=== PATIENT | male | born 1940 | race Caucasian/White ===

== ENCOUNTER 2023-06-25 16:53 | Inpatient (IN) | payer MEDICARE, OTHER, SELFPAY ==
[2023-06-25 14:57] VITALS: BP 136/66
[2023-06-25 15:00] VITALS: BMI 24.3
--- NOTE | 2023-06-25 15:13 | ED TECH ---
A STROKE ALERT was called#[id number]# per @ 15:12 pm. [facility] Notified.
--- NOTE | 2023-06-25 15:31 | CON.NEURO ---
Neuro Assessment/Plan
Assessment
IMPRESSIONS/RECOMMENDATIONS:
Abrupt onset syncope while eating suggesting possible orthostasis followed by slurred speech and left-sided facial weakness
in a patient with a prior history of subdural hematoma in 1993 following traumatic head injury and a repeated event in approximately 2013
Most likely the patient's syncope was not neurological in etiology and there is no clear evidence at this time that the patient is experiencing an acute onset of stroke. The patient's ongoing slurred speech may represent an outcome from relative
hypoxia, briefly experienced
Plan
No clear indication for additional brain neuroimaging unless the patient worsens
No clear indication patient will require additional EEG or other neurological testing
Would continue the patient on aspirin although the use of anticoagulant would be acceptable from use of HAS-BLED scale
Consider additional cardiac evaluation
Consider additional metabolic evaluation especially in light of the patient's relative hypothermia
Will continue to follow patient as needed. Thank you.
Consultation
Order
Date of Consultation: 06/25/23
Requesting Provider: ED Provider
Reason for Consult: Stroke alert
Subjective/Objective
Subjective Data
Date of Service: June 25, 2023
Left-Handed
Patient presented to this [facility] from usual location of living due to that of syncope. Patient had been in his usual state of health until while eating, he suddenly lost consciousness. There is no warning before the event,
no control loss of bowel or bladder and no tongue biting. The patient returned to consciousness and awareness of his lunch tray being disturbed. No prior episodes which were similar. No known modifying factors. Of note is that the patient began
use of an antibiotic for an urinary tract infection 3 days ago. Otherwise, the patient has been well.
Objective Data
Vital Signs
Temp Pulse Resp Pulse Ox
35.3 C L 68 21 96
06/25/23 15:00 06/25/23 15:00 06/25/23 15:00 04/30/24 15:08
Patient Allergies
Wlubezu-CZY-CwL Reductase Inhibitor [Cezwxqk-Wem-Tqb Reductase Inhibitor] Allergy (Verified 07/05/20 12:00)
MUSCLE CRAMPS
CVA Assessment
Onset of Stroke Symptoms
Onset of symptoms known: Yes
Date of onset of symptoms: 06/25/23
Time of onset of symptoms: 13:30
Time pt last seen normal is known: Yes
Date last time pt seen normal: 06/25/23
Time last time pt seen normal: 13:30
NIH Stroke Score
Level of Consciousness: 0 - Alert
LOC Questions: 0-Answers both correctly
LOC Commands: 0-Performs both correctly
Best Horizontal Gaze: 0-Normal
Visual Cook: 0=Normal, no visual loss
Facial Palsy: 0=Normal, symmetrical
Motor - Right Arm: 0=No drift 10 seconds
Motor - Left Arm: 0=No drift 10 seconds
Motor - Right Le-No drift 5 seconds
Motor - Left Le-No drift 5 seconds
Limb Ataxia: 0-Absent
Sensation: 0-Normal
Best Language: 0-No aphasia
Dysarthria: 1-Mild slurring
Extinction and Inattention: 0-No abnormality
Total Score:: 1
Tenecteplase Contraindications
Inclusion and Exclusion criteria reviewed: Yes
IAT Contraindications: NIHSS < 6
Review of Systems
-
History Source: Patient
All other systems: Reviewed and negative
EENT: Negative Swallowing Difficulty
Respiratory: Negative Trouble Breathing
Cardiac: Negative Chest Pain
Abdomen/GI: Negative Incontinence of Stool
Genitourinary: Negative Incontinence
Musculoskeletal: Negative Back Pain or Neck Pain
Neuro: Negative Dizzy, Headache or Weakness
Physical Exam
-
General: No Apparent Distress and Appears Stated Age
Eyes: OU Absent Papilledema, Round OU, [place] Conjunctivae and No Ptosis
HEENT: Anicteric and Moist Mucous Membranes
Neck: Full Range of Motion
Respiratory: No Dyspnea
Cardiac: No JVD
GI: Non-distended
Skin: Unremarkable
Extremities: No Clubbing, No Cyanosis and No Edema
Psych: Intact Judgement/Insight
Extended Neurological Exam
Mood & Affect: Mood Unremarkable and Affect Unremarkable
Attention Span & Concentration: Awake, Alert, Interactive and No Difficulty with 2 Step Request
Memory: Unremarkable
Tremor: Hand Tremor Absent and Head Tremor Absent
Speech: Quality Unremarkable and Quantity Unremarkable
Cranial Nerve II: Left Eye: Pupillary Reactivity Unremarkable, Pupillary Size Unremarkable and Visual Cook Intact
Cranial Nerve II: Right Eye: Pupillary Reactivity Unremarkable, Pupillary Size Unremarkable and Visual Cook Intact
Cranial Nerves III, IV, : Extraocular Movement: Extraocular Movement Full in all Directions
Cranial Nerve VII: Facial Symmetry: Normal Facial Symmetry
Cranial Nerve VIII: Hearing: Unremarkable Hearing to Normal Conversational Volume
Cranial Nerves IX, X: Palate Movement: Palate Elevation Symmetric
Cranial Nerve XI: Shoulder Shrug: Unremarkable
Cranial Nerve XII: Tongue Protusion: Midline
Muscle Strength, Overall: Full Throughout
Muscle Bulk & Tone: Bulk Unremarkable and Tone Unremarkable
Pronator Drift: No Drift in Upper Extremities
Deep Tendon Reflexes: Unremarkable Throughout
Touch Sensation: Unremarkable
Coordination: Qtmayk-hvld-gyrvfb Testing Unremarkable
Babinski Sign: Absent Bilaterally
Gait & Station: Unable to Assess
Data Reviewed
-
CT Head: Image Reviewed
Labs: Pending and Report Reviewed
Reviewed with: Physician, Nurse, Patient and Family (At bedside)
Old Records: Summarized
Medications
-
Home Medications
�Medication �Instructions �Recorded
amiodarone 200 mg tablet (Pacerone) 200 mg PO Daily #90 tabs 02/22/20
aspirin 81 mg chewable tablet 81 mg PO DAILY 02/22/20
carvedilol 6.25 mg tablet 6.25 mg PO BID #180 tabs 02/22/20
ezetimibe 10 mg tablet 10 mg PO DAILY #90 tabs 02/22/20
furosemide 40 mg tablet 40 mg PO BID AT 0800,1600 #180 tabs 02/22/20
pravastatin 10 mg tablet 10 mg PO QPM #90 tabs 02/22/20
sacubitril 24 mg-valsartan 26 mg 1 tab PO BID #180 tabs 02/22/20
tablet (Entresto)
glipizide 5 mg tablet 5 mg PO DAILY 07/05/20
insulin glargine 100 unit/mL (3 50 units SC HS 07/05/20
mL) subcutaneous pen (Lantus
Solostar U-100 Insulin)
levothyroxine 25 mcg tablet 25 mcg PO DAILY 07/05/20
Past History
Past History
ED Past Medical History: Arrthythmia (Atrial fibrillation), CAD, CHF, CVA, HTN, Hypercholesterolemia, NIDDM, [place] and Other (Intracranial hemorrhage 1993 with subdural hematoma, repeated in 2013 and with evacuation)
ED Past Surgical History: Cardiac (Cardiac catheterization 1992), Urological (Kidney stone removal) and Other (Craniotomy 1993 and 2013)
Social History
Tobacco: Former smoker
Alcohol: None
Drug: None
Personal:
Living: with family
Employment: Retired
Family History
Family History: Other (reviewed and non-contributory) and Adopted
[2023-06-25 15:33] LABS: % Basophils 0.3 % (0-2); % Eosinophils 2.7 % (0-6); % Immature Granulocytes 1.2 % (0-0.5); % Lymphocytes 16.9 % (20.5-51.1); % Monocytes 6.6 % (1.7-9.3); % Neutrophils 72.3 % (42.2-75.2); Absolute Eosinophils 0.3 10^3/uL (0-0.7); Absolute Immature Granulocytes 0.1 10^3/uL (0-0.05); Absolute Monocytes 0.8 10^3/uL (0.1-0.6); Absolute Neutrophils 8.6 10^3/uL (1.4-6.5); Hematocrit 42.1 % (39.0-52.0); Hemoglobin 14.2 g/dL (13.0-18.0); Mean Corp Hgb Conc. 33.7 g/dL (33.0-37.0); Mean Corpuscular Hgb 28.2 pg (27.0-31.0); Mean Corpuscular Volume 83.7 fL (80.0-94.0); Mean Platelet Volume 9.2 fL (7.4-10.4); Nucleated Red Blood Cells % 0 % (-); Platelet Count 262 10^3/uL (130-400); Red Blood Cell Count 5.03 10^6/uL (4.70-6.10); Red Cell Dist. Width 14.6 % (11.5-14.5); White Blood Cell Count 11.8 10^3/uL (4.8-10.8)
[2023-06-25 15:48] LABS: ALT (SGPT) 22 U/L (0-50); AST (SGOT) 25 U/L (17-59); Albumin 3.4 g/dl (3.5-5.0); Alkaline Phosphatase 94 U/L (38-126); Blood Urea Nitrogen 30 mg/dl (9-20); Calcium 8.8 mg/dl (8.4-10.2); Carbon Dioxide 24 mmol/L (22-30); Chloride 104 mmol/L (98-107); Estimated Creatinine Clearance 55 ml/min; Glucose 173 mg/dl (70-99); Magnesium 2.4 mg/dl (1.6-2.3); Potassium 3.9 mmol/L (3.5-5.1); Sodium 137 mmol/L (135-145); Total Bilirubin 0.6 mg/dl (0.2-1.3); Total Protein 6.3 g/dl (6.3-8.2); eGFR > 60.00
--- NOTE | 2023-06-25 15:50 | ED.CVA ---
History of Present Illness
General
Chief Complaint: CVA/TIA Symptoms
Source: patient, [facility] crew and [facility]
Exam Limitations: none
Time Seen by Provider: 06/25/23 15:05
Nursing documentation reviewed up to this point in time: agreed with
Onset of Stroke Symptoms
Onset of symptoms known: Yes
Date of onset of symptoms: 06/25/23
Time of onset of symptoms: 13:30
Travel History
Have you had any contact with someone who has COVID-19?: No
Do you have any symptoms of coronavirus? Fever > 100 degrees, chills, cough, shortness of breath, sore throat, loss of taste or smell, muscle aches, or headache?: No
History of Present Illness
History of Present Illness:
Patient presents to ED from [facility] after witnessed syncopal episode in his room. Per patient, he had lunch brought to his room. He was sitting on his lounge chair waiting to eat his lunch, when he 'passed out'. When he woke up, still
sitting on his lounge chair, his lunch has been thrown off the table onto the floor. Patient denies confusion afterwards. Patient denies preceding chest palpitations, dizziness, or any other complaints. Patient is currently being treated for UTI,
on day 3 of Keflex. Per transfer note, patient went when he woke up, was noted to be exhibiting mild slurred speech with left facial droop, which now have all resolved. At the time of evaluation ED, patient is without any complaints. Patient at
baseline uses walker, secondary to leg fracture. In addition, patient has residual right-sided weakness from previous cerebral hematoma, requiring craniectomy.
Past History
Past History
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
ED Past Surgical History: Cardiac (Cardiac catheterization 1992), Urological (Kidney stone removal) and Other (Craniotomy 1993 and 2013)
Social History
Tobacco: Former smoker
Alcohol: None
Drug: None
Personal:
Living: with family
Employment: Retired
Family History
Family History: Other (reviewed and non-contributory) and Adopted
Review of Systems
Review of Systems
Allergies reviewed?: Yes
All Other Systems: ROS reviewed and negative except as documented in HPI and ROS
Constitutional: Reports no symptoms; Denies fever
EENT: Reports no symptoms
Respiratory: Reports no symptoms
Cardiac: Reports syncope; Denies palpitations
ABD/GI: Reports no symptoms
: Reports no symptoms
Musculoskeletal: Reports no symptoms
Skin: Reports no symptoms
Neurological: Reports no symptoms; Denies dizzy or headache
Phy Exam
Physical Exam
Physical Exam:
Physical Exam
General: no apparent distress, not acutely ill. afebrile
Head: nc/at. eomi
Neck: supple. no meningeal signs.
Heart: s1/s2 regular rate and rhythm, no murmur. equal radial pulses.
Lungs: no acute respiratory distress. clear bilaterally
Abdomen: normal bowel sounds. not tender.
Neuro: alert and oriented. no focal neurological deficits. normal speech.
Skin: no rash
Psychiatric: well kept. interactive and cooperative
Extremities: no edema. no calf tenderness.
Course
Orders/Labs/Results
Orders:
Orders
06/25/23 Dinner
2000 calorie (17 carb) Diabetic
At Your Request: Limited Participation
06/25/23 15:15
CT Head W/o Cont STROKE ALERT Stat
Reason For Exam: stroke/tia
06/25/23 15:17
Electrocardiogram (*1) Urgent
Reason for Study: TIA/Stroke
EKG- Treatment ONCE
06/25/23 15:19
Complete Blood Count/With Diff Urgent
Comprehensive Metabolic Panel Urgent
Magnesium Urgent
Troponin I Urgent
Blood Culture Q30M
DENA Source: Blood/Venous
Specimen Description:
06/25/23 15:49
Urinalysis Reflex To Culture Urgent
Date Specimen was Collected: 06/25/23
Time Specimen was Collected: 15:48
Urine Microscopic Reflex Cult Urgent
Urine Culture Urgent
DENA Source: U
Specimen Description:
Date Specimen was Collected: 06/25/23
Time Specimen was Collected: 15:48
06/25/23 15:52
Lactic Acid Q4H
Comment: CANCEL 2nd LACTIC ACID IF 1st LACTIC ACID IS LESS THAN 2
Blood Culture Q30M
DENA Source: Blood/Venous
Specimen Description:
06/25/23 16:40
Admit/Transfer Patient As Directed
Co-Sign Provider:
Level of Care: Inpatient admission
Assign to:: Telemetry
Physician / Group: [place]
Diagnosis: Syncope, UTI
Reason for Telemetry: Syncope
Date to Stop Telemetry: 06/27/23
Time to Stop Telemetry: 11:00
Reason for Hospitalization: IV abx
Expected length of stay greater than two midnights?: Yes
ELOS- Estimated Length of Stay in days: 3
I certify the patient meets the requirements for IP care: Yes
06/25/23 16:45
Code Status As Directed
Resuscitation Status: Do not resuscitate
Reached after discussion with pt or family/Healthcare POA: Yes
DNR Bracelet Application ONCE
06/25/23 17:47
0.9% Sodium Chloride 1000 ml [Nss] 1,000 ml IV 60 mls/hr
Acetaminophen [Tylenol] 650 mg PO Q4HPRN PRN
Dextrose 50%-Water [Dextrose 50% Syringe] 12.5 grams IV [id number] PRN
Glucagon [GlucaGen] 1 mg IM PRN PRN
06/25/23 17:47
Activity As Directed
Activity Level: Out of Bed-Early Mobility
With Assistance
Bedside Glucose Monitoring As Directed
Frequency: AC&HS
Additional Instructions:: Change to q6h if pt on TPN, tube feeding or not eating
I&O [Intake/ Output] As Directed
Frequency: q12h
NIH Stroke Scale As Directed
Directions: Per protocol
Comment: every shift and with any change in condition or mental status
Neurological Checks As Directed
Frequency: q4h
Additional Instructions:: q4h x 24h upon admission to the floor, then qshift & with any change in condition
and mental status
Orthostatic Vital Signs As Directed
Orthostatic VS Frequency: BID
Pneumatic Compression Sleeves As Directed
Type: Knee high
Vital Signs As Directed
Frequency: Per unit guidelines
Weight As Directed
Frequency: Daily
Ot Eval And Treat Routine
Pt Eval And Treat Routine
Activity Level: Out of Bed-Early Mobility
Speech Therapy Eval & Treat Routine
DX Deep Vein Thrombosis Video Routine
06/25/23 18:00
CefTRIAXone [Rocephin] 1,000 mg IV Q24H
Pravastatin Sodium [Pravachol] 10 mg PO QPM
06/25/23 20:00
Carvedilol [Coreg] 6.25 mg PO BID
Sacubitril 24/Valsartan 26 [Entresto 24 mg/26 mg] 1 tab PO BID
06/25/23 20:07
Lactic Acid Q4H
Comment: CANCEL 2nd LACTIC ACID IF 1st LACTIC ACID IS LESS THAN 2
06/25/23 22:00
insulin glargine [Lantus Solostar U-100 Insulin] 68 units SC HS
06/26/23 06:00
Basic Metabolic Panel IN AM
Complete Blood Count/No Diff IN AM
Glycohemoglobin (HgbA1c) IN AM
Magnesium IN AM
TSH Reflex To Free T4 IN AM
Levothyroxine [Synthroid] 50 mcg PO MoTuWeThFrSa@0600
06/26/23 07:30
Insulin Aspart Corrective Mod [Novolog Flexpen-Moderate Resistance] See Protocol SC AC
06/26/23 08:00
Aspirin Chewable [Low Strength Aspirin] 81 mg PO DAILY
Empagliflozin [Jardiance] 10 mg PO DAILY
Ezetimibe [Zetia] 10 mg PO DAILY
06/27/23 11:00
DC Protocol for Telemetry ONCE
06/30/23 06:00
Levothyroxine [Synthroid] 100 mcg PO SHEPHERD@0600
Abnormal Lab Results
06/25/23 06/25/23 06/25/23
15:19 15:49 15:52
WBC 11.8 H 10^3/uL
(4.8-10.8)
RDW 14.6 H %
(11.5-14.5)
Abs Immat Gran (auto) 0.1 H 10^3/uL
(0-0.05)
Absolute Neuts (auto) 8.6 H 10^3/uL
(1.4-6.5)
Absolute Monos (auto) 0.8 H 10^3/uL
(0.1-0.6)
Immature Gran % 1.2 H %
(0-0.5)
Lymphocytes % 16.9 L %
(20.5-51.1)
BUN 30 H mg/dl
(9-20)
Glucose 173 H mg/dl
(70-99)
Lactic Acid 2.3 H mmol/L
(0.7-2.0)
Magnesium 2.4 H mg/dl
(1.6-2.3)
Albumin 3.4 L g/dl
(3.5-5.0)
Ur Occult Blood Reflex 3+ A
(Negative)
Leukocyte Esterase Rfl 2+ A
(Negative)
Urine RBC 3-6 A /HPF
(0-2)
Urine WBC (Reflex) 80-90 A /HPF
(0-5)
Urine Bacteria (Reflex) Few A
(Negative)
Urine Yeast Many A
(Negative)
Urine Glucose 3+ A
(Negative)
06/25/23 15:19
06/25/23 15:19
Vital Signs
Initial and Last Documented VS:
Initial Vital Signs
BP
136/66
06/25/23 14:57
Last Documented Vital Signs
Temp Pulse Resp BP Pulse Ox
97.6 F 75 18 143/92 98
06/25/23 20:18 06/25/23 21:09 06/25/23 20:18 06/25/23 21:09 06/25/23 20:18
MDM/Problems Addressed
MDM/Problems Addressed:
CT head: NAD.
Pt evaluated in ED by (neurology) - does not feel that this is cva event, but symptoms likely metabolic in etiology or cardiac.
Awaiting urine culture result from [place].
Discussed with patient's family at bedside. Patient current speech pattern abnormal -more slurred than usual.
Blood culture pending.
Patient will be admitted for further evaluation and treatment.
*EKG
Interpreted by ED Provider?: Yes
EKG Intrepretation Date: 06/25/23
Heart Rate: 63
Rate: normal
Rhythm: sinus
[place]: normal axis
Interval: normal interval
QRS Pattern: right bundle branch block
Ischemia: T-wave inversion
*Critical Care Note
Total Time (30-74mins, 75-104mins- exclusive of procedures): Not Applicable
ED Attending Note
-
Portions of this chart may have been created with voice recognition software.� Occasional wrong word or��sound alike� substitutions may have occurred due to the inherent limitations of voice recognition software.
Discharge Plan
Departure
Patient Disposition: Admit
Date of Disposition: 06/25/23
Time of Disposition: 16:10
Admit to: Telemetry
Presentation/result/management discussed w/ accepting MD/DO: Hospitalist
Discharge Problem:
Slurred speech, Acute UTI
Interventions
Interventions:
*Risk Screen - Suicide Last Done: 06/25/23 15:01
*General Assessment Last Done: 06/25/23 15:01
*Neglect/Abuse Screening Last Done: 06/25/23 15:01
ED- Fall Risk Assessment Last Done: 06/25/23 15:08
*ED COVID-19 Vaccine History Last Done: 06/25/23 15:01
*Nursing Disposition Last Done: 06/25/23 17:50
ED- Pulmonary Assessment Last Done: 06/25/23 15:08
ED- Neurological Assessment Last Done: 06/25/23 15:08
ED- Cardiac Assessment Last Done: 06/25/23 17:24
ED Swallowing Screen Last Done: 06/25/23 17:24
Discharge Date and Time
Discharge Date/Time: 06/25/23 17:50
[2023-06-25 15:56] LABS: Troponin I < 0.012 ng/ml
[2023-06-25 16:00] VITALS: BP 144/77
[2023-06-25 16:02] LABS: Urine Albumin Trace (Neg - Trace); Urine Bilirubin Negative (Negative); Urine Character Slightly Cloudy (Clear); Urine Color Yellow; Urine Glucose 3+ (Negative); Urine Ketone Negative (Negative); Urine Leukocyte 2+ (Negative); Urine Nitrite Negative (Negative); Urine Occult Blood 3+ (Negative); Urine Urobilinogen Negative (Neg - 1+)
[2023-06-25 16:15] LABS: Lactic Acid 2.3 mmol/L (0.7-2.0)
--- NOTE | 2023-06-25 16:15 | W.PN.UPDATE ---
Update Note
Progress Note Update
This serves as an addendum to the H&P dictated by Mahsa Mac on 06/24.
I saw and examined the patient.
The PLATFORM INSPECTOR or PA's note was reviewed and I agree with the note.
Comment:
Patient 83 years old with history of hypertension, hyperlipidemia, CAD, CHF, CVA, presented to the hospital with syncope. Patient has been diagnosed with a urinary tract infection recently on antibiotics in the last couple days. Today he had an
episode of syncope associated with possible worsening slurred speech and left facial weakness and right-sided weakness. It was difficult to tell if the symptoms are worsening since he does have residual slurred speech, teeth extractions and
dentures, and facial weakness and right-sided weakness from prior strokes. Denies prodrome symptoms such as lightheadedness or warmth or other, and no bowel bladder incontinence, no tonic-clonic activity, no tongue biting, no chest pain or
shortness of breath. Patient was recently diagnosed with a UTI and taking antibiotics but symptoms have not worsened. Concern for stroke and CT scan of the head shows no acute intracranial abnormality but shows significant chronic findings in the
left hemisphere and neurology consulted. He was referred to hospitalist for further evaluation.
Physical exam:
General: Well Developed, Well Nourished and No Apparent Distress
HEENT: Normocephalic, Atraumatic and Moist Mucous Membranes
Respiratory: Clear to Auscultation; Negative Wheezes, Rales or Rhonchi
Cardiac: Regular Rhythm and S1/S2
GI: Soft, Nontender and Nondistended
Musculoskeletal: No Clubbing, No Cyanosis and No Edema
Neuro: Awake, Alert and Oriented. 4 out of 5 right upper and lower extremity, mild left facial weakness, mild dysarthria/slurred speech. Cranial nerves are intact. Did not attempt gait.
Psych: Calm
A/P:
Syncope, etiology possible recrudescence of prior stroke/UTI/rule out cardiac arrhythmia--> cardiac monitoring, continue aspirin and statins, IV Rocephin, requested old records, follow-up old and new cultures, neurology consult, further neurologic
workup per neurology. Discussed CODE STATUS with patient and 2 sons at bedside and he was ambivalent initially but later on said he does not want to be resuscitated or on life support and sons confirmed DNR status.
[2023-06-25 16:36] LABS: Urine Squamous Cell 0-2 /LPF (Few); Urine White Cell 80-90 /HPF (0-5)
[2023-06-25 16:37] LABS: Urine Bacteria Few (Negative); Urine Yeast Many (Negative)
--- NOTE | 2023-06-25 16:48 | HPS.HSE ---
Family Physician
-
Family Physician: Unique Brown
Chief Complaint
-
Syncope
History of Present Illness
Patient is an 83 y/o male past medical history of ICH, CAD, CHF, A-Fib who presents following a syncopal episode earlier today. Patient reports he was sitting in his room eating lunch when he just blacked out. He denies any preceding symptoms
including chest pain or palpitations. Patient admits to difficulty with speech at baseline but states since the episode his speech is more slurred than usual. Upon arrival to the ED he was noted to be hypothermic, and reports he has been on
antibiotics for a urinary tract infection for the past several days. He denies fevers, sweats or chills.
Medical History
Past Medical History
Past Medical History: Reports Other
Additional Past Medical History:
Intracranial Hemorrhage
Coronary Artery Disease
Chronic HFrEF
Paroxysmal Atrial Fibrillation
Essential Hypertension
Hyperlipidemia
Diabetes Mellitus, Type II
Hypothyroidism
Past Surgical History: Reports Other
Additional Past Surgical History:
Craniotomy
Kidney Stone Removal
Social History
Tobacco: Former Smoker
Living: Assisted Living
Family History
Family History: Not pertinent
Allergies / Home Medications
Allergies reflects when Allergies were last updated in [employer].
Home Medications with original date entered in [employer]
Allergy/Medication List:
Allergies
Allergy/AdvReac Type Severity Reaction Status Date / Time
Qnnnnxb-YNO-EnD Reductase Allergy MUSCLE Verified 07/05/20 12:00
Inhibitor CRAMPS
[Bdfilki-Qnv-Cse Reductase
Inhibitor]
Home Medications
aspirin 81 mg chewable tablet 81 mg PO DAILY 02/22/20
carvedilol 6.25 mg tablet 6.25 mg PO BID #180 tabs 02/22/20
ezetimibe 10 mg tablet 10 mg PO DAILY #90 tabs 02/22/20
pravastatin 10 mg tablet 10 mg PO QPM #90 tabs 02/22/20
glipizide 5 mg tablet 5 mg PO BID@0800,1700 07/05/20
insulin glargine 100 unit/mL (3 mL) subcutaneous pen (Lantus Solostar U-100 Insulin) 68 units SC HS 07/05/20
acetaminophen 325 mg tablet 650 mg PO Q8H PRN mild pain 06/25/23
ascorbate calcium (vitamin C) 500 mg tablet 1,000 mg PO DAILY PRN cold symptoms 06/25/23
calcium carbonate 400 mg PO DAILY PRN gerd 06/25/23
cephalexin 500 mg capsule 500 mg PO BID 06/25/23
dextromethorphan-guaifenesin 10 mg-100 mg/5 mL oral syrup 10 ml PO Q4H PRN cough/congestion 06/25/23
diclofenac sodium 1 % topical gel 2 g topical DAILY 06/25/23
diclofenac sodium 1 % topical gel 4 g topical BID PRN right knee pain 06/25/23
empagliflozin 10 mg tablet (Jardiance) 10 mg PO DAILY 06/25/23
furosemide 40 mg tablet 40 mg PO DAILY 06/25/23
levothyroxine 50 mcg tablet 50 mcg PO MOTUWETHFRSA 06/25/23
levothyroxine 50 mcg tablet 100 mcg PO SHEPHERD 06/25/23
peg 400-propylene glycol 0.4 %-0.3 % eye drops (Lubricant Eye (PG-PEG 400)) 1 drp BOTH EYES DAILY PRN dry eyes 06/25/23
sacubitril 24 mg-valsartan 26 mg tablet (Entresto) 1 tab PO BID 06/25/23
Review of Systems
-
A 12 point ROS was completed and negative except as noted: Yes
Constitutional: Denies Fever or Chills
Respiratory: Denies Cough or Trouble Breathing
Cardiac: Denies Chest Pain or Palpitations
Abdomen/GI: Denies Abdominal Pain, Nausea or Vomiting
Physical Exam
Vital Signs
Vital Signs
Temp Pulse Resp BP Pulse Ox
95.5 F L 63 22 136/66 96
06/25/23 15:00 06/25/23 15:30 06/25/23 15:00 06/25/23 14:57 06/25/23 15:08
Physical Exam
General: Comfortable and Conversant
HEENT: Anicteric and Moist mucous membranes
Respiratory: Clear and Non Labored Respirations
Cardiac: S1/S2 and Regular Rhythm
GI: Soft and Non Tender
Rectal: Deferred by Provider
Musculoskeletal: No Clubbing, No Cyanosis and No Edema
Skin: Warm and Dry
Neuro: Awake, Alert, Oriented, No Motor Deficits and Other (Chronic right foot drop)
Psych: Calm
Laboratory Results
-
06/25/23 15:19
06/25/23 15:19
Laboratory Results
Lactic Acid 2.3 mmol/L (0.7-2.0) H 06/25/23 15:52
Total Bilirubin 0.6 mg/dl (0.2-1.3) 06/25/23 15:19
AST 25 U/L (17-59) 06/25/23 15:19
ALT 22 U/L (0-50) 06/25/23 15:19
Alkaline Phosphatase 94 U/L (38-126) 06/25/23 15:19
Troponin I < 0.012 ng/ml 06/25/23 15:19
Data Reviewed
-
CT Scan: Report Reviewed by me
Lab Data: Labs Reviewed by me
Impression/Plan
-
Syncope
-Monitor on Telemetry
-Check orthostatic vital signs
Urinary Tract Infection
-Continue Rocephin
-Await urine and blood cultures
Slurred Speech, possible recrudescence of prior stroke
-Appreciate neurology consult
-Monitor neurochecks
Hx Intracranial Hemorrhage with Residual Right Foot Drop
-Consult PT/OT
Coronary Artery Disease s/p cardiac stent
-Continue aspirin
Chronic HFrEF
-Hold Lasix overnight
-Continue Entresto and Jardiance
-Monitor Is&Os and Daily Weights
Paroxysmal Atrial Fibrillation
-Patient is not on anticoagulation due to due history of intracranial hemorrhage
Essential Hypertension
-Continue Coreg
Hyperlipidemia
-Continue Zetia and Pravastatin
Diabetes Mellitus, Type II
-Hold Glipizide
-Continue Jardiance
-Continue Lantus
-Monitor sugar and continue converge insulin
Hypothyroidism
-Continue levothyroxine
DVT Proph: SCDs
Code Status: DNR
[2023-06-25 17:00] VITALS: BP 164/77
[2023-06-25 17:18] VITALS: BP 156/141
--- NOTE | 2023-06-25 17:50 | PTCARENOTE ---
06/24- Patient transferred and oriented to unit without issue. AAOX3; L-facial droop observed; Slow but clear speech currently observed. Telemetry #19- NSR at this time.
[2023-06-25 18:13] LABS: Glucose - Point of Care 208 mg/dl (70-99)
[2023-06-25 18:24] VITALS: BMI 24.3
[2023-06-25] MEDS: NSS 1000 IV (18:28)
[2023-06-25] MEDS: STERILE WATER FOR INJECTION 10 ML IV (18:31)
[2023-06-25] MEDS: ROCEPHIN 1000 MG IV (18:31)
[2023-06-25] MEDS: PRAVACHOL 10 MG PO (18:33)
[2023-06-25 20:18] VITALS: BP 143/92
[2023-06-25 20:25] LABS: Lactic Acid 1.2 mmol/L (0.7-2.0)
[2023-06-25] MEDS: COREG 6.25 MG PO (21:09)
[2023-06-25] MEDS: ENTRESTO 24 MG/26 MG 1 TAB PO (21:09)
[2023-06-25] MEDS: LANTUS 0.680000000000000049 UNITS SC (21:10)
[2023-06-25 21:15] LABS: Glucose - Point of Care 226 mg/dl (70-99)
[2023-06-25] MEDS: COMPAZINE 5 MG IV (22:28)
[2023-06-25 23:39] VITALS: BP 148/79
[2023-06-26] VITALS (8 sets, daily range): BP systolic 130–163; BP diastolic 64–81; PULSE 74–81; O2SAT 97; BMI 23.1
[2023-06-26] MEDS: SYNTHROID 50 MCG PO (05:24)
[2023-06-26] MEDS: COMPAZINE 5 MG IV (05:52)
[2023-06-26 07:16] LABS: Glucose - Point of Care 174 mg/dl (70-99)
[2023-06-26 08:33] LABS: Hematocrit 45.3 % (39.0-52.0); Mean Corp Hgb Conc. 33.1 g/dL (33.0-37.0); Mean Corpuscular Volume 84.5 fL (80.0-94.0); Mean Platelet Volume 9.3 fL (7.4-10.4); Platelet Count 249 10^3/uL (130-400); Red Blood Cell Count 5.36 10^6/uL (4.70-6.10); Red Cell Dist. Width 14.4 % (11.5-14.5); White Blood Cell Count 12.5 10^3/uL (4.8-10.8)
[2023-06-26 09:15] LABS: Blood Urea Nitrogen 27 mg/dl (9-20); Calcium 9.2 mg/dl (8.4-10.2); Carbon Dioxide 22 mmol/L (22-30); Chloride 109 mmol/L (98-107); Estimated Creatinine Clearance 79 ml/min; Glucose 151 mg/dl (70-99); Magnesium 2.6 mg/dl (1.6-2.3); Potassium 3.8 mmol/L (3.5-5.1); Sodium 142 mmol/L (135-145); eGFR > 60.00
[2023-06-26 09:45] LABS: TSH Reflex To Free T4 2.91 uIU/ml (0.47-4.68)
[2023-06-26] MEDS: NOVOLOG FLEXPEN-MODERATE RESISTANCE 1 UNITS SC (10:12)
[2023-06-26] MEDS: JARDIANCE 10 MG PO (10:13)
[2023-06-26] MEDS: ENTRESTO 24 MG/26 MG 1 TAB PO ×2 (10:13→22:05)
[2023-06-26] MEDS: LOW STRENGTH ASPIRIN 81 MG PO (10:13)
[2023-06-26] MEDS: ZETIA 10 MG PO (10:13)
[2023-06-26] MEDS: COREG 6.25 MG PO ×2 (10:13→22:04)
[2023-06-26 11:05] LABS: Glycohemoglobin (HgbA1c) 8.9 % (4.0-5.6)
--- NOTE | 2023-06-26 11:12 | W.PN.HOSP.TC ---
Addendum entered and electronically signed by Rajesh Quintero MD 06/26/23 14:05:
Patient's son, Yung was updated over the phone at [phone] and complete details. He was appreciative of updates.
Original Note:
Today's Communication/Plan
-
AXR
Orthostatics
Monitor on tele
Assessment / Plan
Assessment / Plan
General: Well Developed, Well Nourished and No Apparent Distress
HEENT: Normocephalic, Atraumatic and Moist Mucous Membranes
Respiratory: Clear to Auscultation; Negative Wheezes, Rales or Rhonchi
Cardiac: Regular Rhythm and S1/S2
GI: Soft, Nontender and Nondistended
Musculoskeletal: No Clubbing, No Cyanosis and No Edema
Neuro: Awake, Alert and Oriented. 4 out of 5 right upper and lower extremity, Cranial nerves are intact.
Psych: Calm
Syncope likely 2/2 dehydration
-Monitor on Telemetry-no arrhythmia noted. PVCs noted.
-Check orthostatic vital signs. No chest pain. Troponin negative.
-Appreciate neurology recs.
Nausea/vomiting
-check Flat plate xray
Candiduria doubt symptomatic.
-EKG to assess Qtc
-Not neutropenic or urinary tract manipulation
-Await blood cultures
Slurred Speech, possible recrudescence of prior stroke
-Appreciate neurology consult
-Monitor neurochecks
Hx Intracranial Hemorrhage with Residual Right Foot Drop
-Consult PT/OT
Coronary Artery Disease s/p cardiac stent
-Continue aspirin
Chronic HFrEF
-Hold Lasix
-Continue Entresto and Jardiance
-Monitor Is&Os and Daily Weights
Paroxysmal Atrial Fibrillation
-Patient is not on anticoagulation due to due history of intracranial hemorrhage
Essential Hypertension
-Continue Coreg
Hyperlipidemia
-Continue Zetia and Pravastatin
Diabetes Mellitus, Type II
-Hold Glipizide
-Continue Jardiance
-Continue Lantus. POC 174
-Monitor sugar and continue converge insulin
Hypothyroidism
-Continue levothyroxine
DVT Proph: SCDs
Code Status: DNR
PT/OT-Home health.
Anticipated Discharge: > 48 hours
Subjective/Interval History
-
Date of Service: June 26, 2023
Had 3 Episode of nausea and vomiting
Received Zofran
Had some Jell-O and states starting to feel mildly better
Objective Data
-
Labs:
Laboratory Results
06/26/23
07:50
WBC 12.5 H
Hgb 15.0
Hct 45.3
Plt Count 249
Sodium 142
Potassium 3.8
Chloride 109 H
Carbon Dioxide 22
BUN 27 H
Creatinine 0.7
Glucose 151 H
Calcium 9.2
Vital Signs:
Vital Signs
Temp Pulse Resp BP Pulse Ox
98.4 F 84 16 131/71 93
06/26/23 07:09 06/26/23 07:09 06/26/23 07:09 06/26/23 07:09 06/26/23 07:09
I&O
06/25/23 06/26/23 06/27/23
06:59 06:59 06:59
Intake Total 360 / 360
Output Total 950 / 950
Balance -590 / -590
Data Reviewed
-
Total Time Spent with Patient (in minutes): 55
[2023-06-26 11:20] LABS: Glucose - Point of Care 234 mg/dl (70-99)
--- NOTE | 2023-06-26 11:41 | CM ---
Addendum entered by Vandana Pedraza 06/26/23 13:54:
TC from neisha Barragan, his work number is [phone], his cell phone does not work at the office. He requested a call from MD. BEEBE to .
Original Note:
Patient seen bedside.
Patient from [facility].
IA completed with patient and verified with Elsie, director from the [facility].
Patient lives with spouse in apartment, however, patients spouse currently in rehab at [place].
Patient ambulates to the dining room independently and is independent with upper body care and dressing.
Needs some assist with LE dressing.
patient can get PT/OT there, but not currently.
Patient stated his son Luca would be able to transport him back.
Per Elsie, contact is neisha Barragan, please call on work number [phone] first, not cell phone( [phone]).
CM called admissions to switch work number as primary.
PCP: Dr Brown
Pharmacy: [facility] (verified with floor nurse at facility)
[facility]
Report# [phone] x [phone] (Elsie/director) or x [phone] for nursing
[2023-06-26] MEDS: NOVOLOG FLEXPEN-MODERATE RESISTANCE 3 UNITS SC ×2 (12:57→17:22)
[2023-06-26] MEDS: MILK OF MAGNESIA 30 ML PO (13:36)
--- NOTE | 2023-06-26 15:15 | PTOTSP ---
Dysphagia Evaluation
Oral and pharyngeal stages of swallowing suspected to be grossly WFL based on clinical bedside swallowing evaluation. Single delayed cough noted after trials were completed which may be concerning for possible reflux vs unrelated cough. Given
admission with syncope while eating lunch, consider GI consult to r/o swallow syncope.
Patient reported his speech as being at it's baseline at this time (see note, baseline 'difficulty with speech') so full speech/language evaluation was held. Please reconsult as appropriate.
Recommend:
1. Regular, Thin Liquids
2. Medications as best tolerated
3. General aspiration and reflux precautions
4. If further swallowing assessment requested given syncopal event while eating, please reconsult via swallow study as appropriate.
[2023-06-26 16:41] LABS: Glucose - Point of Care 210 mg/dl (70-99)
[2023-06-26] MEDS: PRAVACHOL 10 MG PO (17:21)
[2023-06-26 21:39] LABS: Glucose - Point of Care 204 mg/dl (70-99)
[2023-06-26] MEDS: LANTUS 0.680000000000000049 UNITS SC (22:05)
[2023-06-27] VITALS (7 sets, daily range): BP systolic 104–162; BP diastolic 49–84; PULSE 68; O2SAT 98; BMI 23.2
[2023-06-27] MEDS: SYNTHROID 50 MCG PO (05:53)
[2023-06-27 08:29] LABS: Glucose - Point of Care 93 mg/dl (70-99)
[2023-06-27] MEDS: NOVOLOG FLEXPEN-MODERATE RESISTANCE SC ×2 (09:22→17:40)
[2023-06-27] MEDS: ENTRESTO 24 MG/26 MG PO (09:25)
[2023-06-27] MEDS: JARDIANCE 10 MG PO (09:28)
[2023-06-27] MEDS: COREG 6.25 MG PO ×2 (09:28→20:32)
[2023-06-27] MEDS: LOW STRENGTH ASPIRIN 81 MG PO (09:28)
[2023-06-27] MEDS: ZETIA 10 MG PO (09:28)
[2023-06-27] MEDS: DULCOLAX 10 MG PO (11:12)
[2023-06-27 11:41] LABS: Glucose - Point of Care 207 mg/dl (70-99)
[2023-06-27] MEDS: NOVOLOG FLEXPEN-MODERATE RESISTANCE 3 UNITS SC (12:45)
--- NOTE | 2023-06-27 13:03 | W.PN.HOSP.TC ---
Today's Communication/Plan
-
Monitor blood pressure
Orthostatic negative
Entresto a.m. held
No need to treat yeast asymptomatic Candidauria
Assessment / Plan
Assessment / Plan
General: Well Developed, Well Nourished and No Apparent Distress
HEENT: Normocephalic, Atraumatic and Moist Mucous Membranes
Respiratory: Clear to Auscultation; Negative Wheezes, Rales or Rhonchi
Cardiac: Regular Rhythm and S1/S2
GI: Soft, Nontender and Nondistended
Musculoskeletal: No Clubbing, No Cyanosis and No Edema
Neuro: Awake, Alert and Oriented. 4 out of 5 right upper and lower extremity, Cranial nerves are intact.
Psych: Calm
Syncope likely 2/2 dehydration
-Monitor on Telemetry-no arrhythmia noted. PVCs noted.
-Check orthostatic vital signs. Orthos negative. No chest pain. Troponin negative.
-Appreciate neurology recs.
Nausea/vomiting likely 2/2 constipation
-had large bm earlier today
-resolved.
Candiduria asymptomatic.
-Not neutropenic or urinary tract manipulation. No symptoms.
-Blood cultures remain negative. Curb sided infectious disease and they recommended if not symptomatic and then No need to treat.
Slurred Speech, possible recrudescence of prior stroke
-Appreciate neurology consult
-Monitor neurochecks
Hx Intracranial Hemorrhage with Residual Right Foot Drop
-Consult PT/OT
Coronary Artery Disease s/p cardiac stent
-Continue aspirin
Chronic HFrEF
-Hold Lasix
-Continue Entresto and Jardiance blood pressure was mildly low earlier today and a.m. dose was held. Monitor blood pressure.
-Monitor Is&Os and Daily Weights
Paroxysmal Atrial Fibrillation
-Patient is not on anticoagulation due to due history of intracranial hemorrhage
Essential Hypertension
-Continue Coreg
Hyperlipidemia
-Continue Zetia and Pravastatin
Diabetes Mellitus, Type II
-Hold Glipizide
-Continue Jardiance
-Continue Lantus. POC 174
-Monitor sugar and continue converge insulin
Hypothyroidism
-Continue levothyroxine
DVT Proph: SCDs
Code Status: DNR
PT/OT-Home health.
Updated patient's son Yung over the phone in detail
Anticipated Discharge: Within 24 hours
Subjective/Interval History
-
Date of Service: June 27, 2023
orthostatic vital negative
afebrile
denies chest pain or lightheadedness
tolerated diet
had bm earlier today
no nausea or vomiting
Objective Data
-
Vital Signs:
Vital Signs
Temp Pulse Resp BP Pulse Ox
97.4 F 72 18 123/75 99
06/27/23 11:00 06/27/23 11:00 06/27/23 11:00 06/27/23 11:00 06/27/23 11:00
I&O
06/26/23 06/27/23 06/28/23
06:59 06:59 06:59
Intake Total 360 / 360 220 / 220
Output Total 950 / 950 950 / 950
Balance -590 / -590 -730 / -730
--- NOTE | 2023-06-27 14:44 | CM ---
Addendum entered by Vandana Pedraza 06/27/23 15:32:
TC from nursing at [facility], they will be able to accept patient back tomorrow with a script for PT/OT.
Original Note:
TC to Jaida/nursing at [facility], faxed PT/OT notes to review.
Await TCB.
[facility]
Report# [phone] x [phone] (Elsie/director) or x [phone] for nursing
--- NOTE | 2023-06-27 15:00 | PTCARENOTE ---
Willie Spoke to Dr. Quintero and recommended to continue telemetry, continue to monitor pt closely on heart monitor.
[2023-06-27 16:39] LABS: Glucose - Point of Care 148 mg/dl (70-99)
[2023-06-27] MEDS: PRAVACHOL 10 MG PO (17:42)
[2023-06-27] MEDS: ENTRESTO 24 MG/26 MG 1 TAB PO (20:32)
[2023-06-27 21:37] LABS: Glucose - Point of Care 133 mg/dl (70-99)
[2023-06-27] MEDS: LANTUS 0.680000000000000049 UNITS SC (21:58)
[2023-06-28 03:55] VITALS: BP 145/73
[2023-06-28] MEDS: SYNTHROID 50 MCG PO (05:44)
[2023-06-28 05:45] VITALS: BMI 23.4
[2023-06-28 07:24] LABS: % Basophils 0.3 % (0-2); % Eosinophils 2.3 % (0-6); % Lymphocytes 22.9 % (20.5-51.1); % Monocytes 6.9 % (1.7-9.3); % Neutrophils 66.6 % (42.2-75.2); Absolute Eosinophils 0.3 10^3/uL (0-0.7); Absolute Immature Granulocytes 0.1 10^3/uL (0-0.05); Absolute Lymphocytes 2.7 10^3/uL (1.2-3.4); Absolute Monocytes 0.8 10^3/uL (0.1-0.6); Absolute Neutrophils 7.9 10^3/uL (1.4-6.5); Hematocrit 44.9 % (39.0-52.0); Hemoglobin 15.1 g/dL (13.0-18.0); Mean Corp Hgb Conc. 33.6 g/dL (33.0-37.0); Mean Corpuscular Hgb 27.7 pg (27.0-31.0); Mean Corpuscular Volume 82.4 fL (80.0-94.0); Mean Platelet Volume 8.9 fL (7.4-10.4); Nucleated Red Blood Cells % 0 % (-); Platelet Count 245 10^3/uL (130-400); Red Blood Cell Count 5.45 10^6/uL (4.70-6.10); Red Cell Dist. Width 14.4 % (11.5-14.5); White Blood Cell Count 11.8 10^3/uL (4.8-10.8)
[2023-06-28 07:30] VITALS: BP 158/73
[2023-06-28 07:51] LABS: Blood Urea Nitrogen 23 mg/dl (9-20); Calcium 9.2 mg/dl (8.4-10.2); Carbon Dioxide 23 mmol/L (22-30); Chloride 107 mmol/L (98-107); Estimated Creatinine Clearance 92 ml/min; Glucose 64 mg/dl (70-99); Potassium 4.1 mmol/L (3.5-5.1); Sodium 138 mmol/L (135-145); eGFR > 60.00
[2023-06-28 07:57] LABS: Glucose - Point of Care 100 mg/dl (70-99)
[2023-06-28] MEDS: NOVOLOG FLEXPEN-MODERATE RESISTANCE SC (08:17)
[2023-06-28] MEDS: ENTRESTO 24 MG/26 MG 1 TAB PO (08:37)
[2023-06-28] MEDS: ZETIA 10 MG PO (08:38)
[2023-06-28] MEDS: LOW STRENGTH ASPIRIN 81 MG PO (08:38)
[2023-06-28] MEDS: COREG 6.25 MG PO (08:38)
[2023-06-28] MEDS: LASIX 40 MG PO (08:38)
[2023-06-28] MEDS: JARDIANCE 10 MG PO (08:39)
--- NOTE | 2023-06-28 10:58 | W.PN.HOSP.TC ---
Today's Communication/Plan
-
DC
See note
Outpatient therapy
Assessment / Plan
Assessment / Plan
General: Well Developed, Well Nourished and No Apparent Distress, eating breakfast
HEENT: Normocephalic, Atraumatic and Moist Mucous Membranes
Respiratory: Clear to Auscultation; Negative Wheezes, Rales or Rhonchi
Cardiac: Regular Rhythm and S1/S2
GI: Soft, Nontender and Nondistended
Musculoskeletal: No Clubbing, No Cyanosis and No Edema
Neuro: Awake, Alert and Oriented. 4 out of 5 right upper and lower extremity, Cranial nerves are intact.
Psych: Calm
Syncope likely 2/2 dehydration
-Monitor on Telemetry-no arrhythmia noted so far. PVCs noted.
-Check orthostatic vital signs. Orthos negative. No chest pain. Troponin negative.
-Appreciate neurology recs.
Nausea/vomiting likely 2/2 constipation
-resolved. Having bowel movements.
Candiduria asymptomatic.
-Not neutropenic or urinary tract manipulation. No symptoms.
-Blood cultures remain negative. Curb sided infectious disease and they recommended if not symptomatic and then No need to treat.
Slurred Speech, possible recrudescence of prior stroke
-Appreciate neurology consult
-Monitor neurochecks
Hx Intracranial Hemorrhage with Residual Right Foot Drop
-Consult PT/OT outpatient therapy
Coronary Artery Disease s/p cardiac stent
-Continue aspirin
Chronic HFrEF
-Restart diuretics
-Continue Entresto and Jardiance. Monitor blood pressure. Stable and elevated now
-Monitor Is&Os and Daily Weights
Paroxysmal Atrial Fibrillation
-Patient is not on anticoagulation due to due history of intracranial hemorrhage
Essential Hypertension
-Continue Coreg
Hyperlipidemia
-Continue Zetia and Pravastatin
Diabetes Mellitus, Type II
-A1c of 8.9.
-Continue Jardiance and glipizide
-Continue Lantus. POC AM 100
-Monitor sugar and continue converge insulin
Hypothyroidism
-Continue levothyroxine
DVT Proph: SCDs
Code Status: DNR
PT/OT-Home health.
Updated patient's son Yung over the phone in detail on a daily basis. Son agreed with discharge back to previous living situation.
More than 30 minutes spent in discharge including
Final examination of the patient
Summarizing hospital stay
Instructions for continuing care to all relevant caregivers
Preparation of discharge records, prescriptions, and referral forms
Total time spent (in minutes): 52
Anticipated Discharge: Today
Subjective/Interval History
-
Date of Service: June 28, 2023
No events on telemetry
Patient was eating breakfast
Feeling better
Denies any chest pain or lightheaded and dizziness
In good spirits today
Objective Data
-
Labs:
Laboratory Results
06/28/23
07:00
WBC 11.8 H
Hgb 15.1
Hct 44.9
Plt Count 245
Sodium 138
Potassium 4.1
Chloride 107
Carbon Dioxide 23
BUN 23 H
Creatinine 0.6 L
Glucose 64 L
Calcium 9.2
Vital Signs:
Vital Signs
Temp Pulse Resp BP Pulse Ox
97.6 F 68 16 158/73 95
06/28/23 07:30 06/28/23 08:37 06/28/23 07:30 06/28/23 08:37 06/28/23 07:30
I&O
06/27/23 06/28/23 06/29/23
06:59 06:59 06:59
Intake Total 220 / 220 660 / 660
Output Total 950 / 950 1350 / 1350
Balance -730 / -730 -690 / -690
--- NOTE | 2023-06-28 11:03 | W.DCSUMMARY ---
Discharge Summary
Discharge Data
Date of Admission: 06/25/23
Date of Discharge: 06/28/23
-
Pending Results: No
Hospital Course
83 male past medical history of intracranial hemorrhage with residual right foot drop, CAD status post stent, chronic HFrEF, atrial fibrillation, hypertension, hyperlipidemia, diabetes mellitus, hypothyroidism was presented with episode of syncope
at the assisted living facility. Patient was being treated for antibiotics prior to arrival for urinary tract infection. Patient urine resulted with yeast. Patient was asymptomatic and does not treatment. Antibiotics were discontinued. IV fluid
was discontinued. patient was tolerating oral intake. Patient orthostatics found to be negative. No arrhythmia was noted on telemetry. Patient was also evaluated in the ER by neurology and not concern for repeat stroke. CT head was obtained.
Patient symptoms improved no further episode of lightheaded dizziness or syncope. Patient was tolerating diet. Patient was eval by physical and Occupational Therapy. Patient was in good spirit. Patient son was updated throughout hospitalization.
Patient be discharged back to previous living situation.
Discharge Plan
-
Patient Disposition: Assisted Living
Discharge Diagnosis/Procedures: Syncope likely secondary dehydration
Nausea vomiting secondary to constipation
Asymptomatic candiduria
Condition: Fair
Diet: 2 Gram Sodium, Diabetic, Carb Controlled and Restrict fluids to 48 oz
Activity: With assistance and As tolerated
Driving Restrictions: No driving
Other Services: PT and OT
Referrals:
Unique Brown DO [Family Provider] - in less than 1 week
Prescriptions:
Continued
carvedilol 6.25 MG tablet
6.25 mg PO BID Qty: 180 4RF
pravastatin 10 MG tablet
10 mg PO QPM Qty: 90 4RF
aspirin 81 MG tablet,chewable
81 mg PO DAILY 0RF
ezetimibe 10 MG tablet
10 mg PO DAILY Qty: 90 4RF
glipizide 5 MG tablet
5 mg PO BID@0800,1700
insulin glargine [Lantus Solostar U-100 Insulin] 300 UNITS/3 ML insulin pen
68 units SC HS
acetaminophen 325 mg Tablet
650 mg PO Q8H PRN (Reason: mild pain)
dextromethorphan-guaifenesin 10-100 mg/5 mL Syrup
10 ml PO Q4H PRN (Reason: cough/congestion)
levothyroxine 50 mcg Tablet
50 mcg PO MOTUWETHFRSA
levothyroxine 50 mcg tablet
100 mcg PO SHEPHERD
ascorbate calcium (vitamin C) 500 mg Tablet
1,000 mg PO DAILY PRN (Reason: cold symptoms)
calcium carbonate 200 mg calcium (500 mg) Tablet,Chewable
400 mg PO DAILY PRN (Reason: gerd)
Lubricant Eye (PG-PEG 400) 0.4-0.3 % Drops
1 drp BOTH EYES DAILY PRN (Reason: dry eyes)
diclofenac sodium 1 % Gel
2 g TOPICAL DAILY
Patient Comments:
06/25/2023: apply to right knee
diclofenac sodium 1 % Gel
4 g TOPICAL BID PRN (Reason: right knee pain)
Jardiance 10 mg tablet
10 mg PO DAILY
Entresto 24-26 mg tablet
1 tab PO BID
furosemide 40 MG tablet
40 mg PO DAILY
Discontinued
cephalexin 500 mg capsule
500 mg PO BID
Patient Comments:
06/25/2023: for 7 days, stop date 06/29/23
Discharge Orders:
Discharge Patient (As Directed); Ordered 06/28/23
Ordered By: Rajesh Quintero
Discharge Date and Time
Print Language: VENEZUELAN
--- NOTE | 2023-06-28 11:18 | CM ---
Addendum entered by Vandana Pedraza 06/28/23 12:13:
IMM completed.
Script for outpatient therapy in transfer packet.
Original Note:
Patient for d/c to [facility] today.
Spoke with patients neisha Barragan, he will have his brother Luca transport the patient.
[facility]
Report# [phone] x [phone] for nursing
[2023-06-28 11:30] VITALS: BP 136/61
[2023-06-28 11:56] LABS: Glucose - Point of Care 199 mg/dl (70-99)
[2023-06-28] MEDS: NOVOLOG FLEXPEN-MODERATE RESISTANCE 1 UNITS SC (11:56)
== END 2023-06-28 14:54 | DRG 641 ==
LOC: 4 WEST ACU 16:53
PROVIDERS: Physician Assistant Medical; ADMITTING PHYSICIAN Hospitalist; ATTENDING PHYSICIAN Hospitalist; EMERGENCY PHYSICIAN Emergency Medicine; FAMILY PHYSICIAN Family Medicine; OTHER PHYSICIAN Psychiatry & Neurology Neurology
DX: E86.0 Dehydration (principal); B37.49 Other urogenital candidiasis; I50.22 Chronic systolic (congestive) heart failure; Z87.891 Personal history of nicotine dependence; I25.10 Atherosclerotic heart disease of native coronary artery without angina pectoris; I11.0 Hypertensive heart disease with heart failure; I48.0 Paroxysmal atrial fibrillation; E78.00 Pure hypercholesterolemia, unspecified; E11.9 Type 2 diabetes mellitus without complications; E03.9 Hypothyroidism, unspecified; Z66 Do not resuscitate; K59.00 Constipation, unspecified
CPT/HCPCS: 70450; 74019; 80048; 80053; 81003; 81015; 82962; 83036; 83605; 83735; 84443; 84484; 85025; 85027; 87040; 87070; 87086; 92610; 93005; 97116; 97163; 97166; 97530; 99285

== ENCOUNTER → 2023-08-07 14:31 | Outpatient (REF) | payer MEDICARE, OTHER, SELFPAY | LOC: CLAB 14:31 | PROVIDERS: ATTENDING PHYSICIAN Specialist | DX: N39.0 Urinary tract infection, site not specified (principal) | CPT/HCPCS: 87077; 87086; 87147 ==

== ENCOUNTER → 2023-08-19 15:53 | Outpatient (REF) | payer MEDICARE, OTHER, SELFPAY | LOC: CLAB 15:53 | PROVIDERS: ATTENDING PHYSICIAN Specialist | DX: N40.1 Benign prostatic hyperplasia with lower urinary tract symptoms (principal); N39.0 Urinary tract infection, site not specified | CPT/HCPCS: 87086 ==